=== PATIENT | male | born 1945 | race Caucasian/White ===

== ENCOUNTER 2019-05-16 13:16 | Inpatient (IN) ==
[2019-05-16 13:52] LABS: Basophils # 0.1 K/mcL (0.0-0.2); Basophils % 0.6 %; Eosinophils # 0.2 K/mcL (0.0-0.6); Eosinophils % 1.7 %; Hematocrit 40.5 % (37.5-50.1); Hemoglobin 13.1 g/dL (12.9-16.9); Immature Granulocytes % 0.4 % (0-4); Lymphocytes # 5.9 K/mcL (0.6-4.6); Lymphocytes % 43.4 %; Mean Corpuscular HGB Conc 32.3 g/dL (31.6-35.5); Mean Corpuscular Hemoglobin 27.9 pg (28.0-33.3); Mean Corpuscular Volume 86.4 fL (83.0-100.0); Mean Platelet Volume 10.1 fL (9.4-12.4); Neutrophils # 6.3 K/mcL (1.6-8.9); Platelet Count 221 K/mcL (140-400); Red Blood Count 4.69 M/mcL (4.19-5.50); Red Cell Distribution Width 15.9 % (11.5-14.5); Segmented Neutrophils % 46.9 %; White Blood Count 13.5 K/mcL (4.3-11.1)
[2019-05-16 14:10] LABS: Albumin 3.6 g/dL (3.5-5.7); Albumin/Globulin Ratio 1.2 (1.1-2.2); Bilirubin,Direct 0.1 mg/dL (0.0-0.2); Bilirubin,Indirect 0.4 mg/dL (0.0-1.2); Bilirubin,Total 0.5 mg/dL (0.3-1.0); Calcium 8.8 mg/dL (8.6-10.3); Globulin 2.9 g/dL (2.4-3.5); Potassium 3.7 mEq/L (3.5-5.1); Total Protein 6.5 g/dL (6.4-8.9)
[2019-05-16] MEDS ORDERED: Ertapenem 1,000 MG in 0.9 % Sodium Chloride Mini Bag 100 ML IVPB SCH (15:00)
[2019-05-16] MEDS ORDERED: Naloxone 0.4 MG/ML INJ IVP PRN (15:48)
[2019-05-16] MEDS ORDERED: Ondansetron 4 MG/2 ML VIAL IVP PRN (16:00)
[2019-05-16] MEDS ORDERED: Dextrose Gel 15 GM/37.5 ML TUBE PO PRN ×2 (16:03)
[2019-05-16] MEDS ORDERED: D5% in Water 1,000 ML IVC PRN (16:03)
[2019-05-16] MEDS: 0.9 % Sodium Chloride 1,000 ML IVC SCH (18:15)
[2019-05-16] MEDS: Insulin LISPRO 300 UNITS/3 ML VIAL SQ SCH (18:20)
[2019-05-16] MEDS ORDERED: levETIRAcetam 250 MG TABLET PO SCH (21:00)
[2019-05-16] MEDS: Gabapentin 300 MG CAPSULE PO SCH (21:36)
[2019-05-16] MEDS: levETIRAcetam 250 MG TABLET PO SCH (21:36)
[2019-05-16] MEDS: Insulin DETEMIR 100 UNIT/ML X5UNITS SQ SCH (21:36)
[2019-05-16] MEDS: Lactobacillus 1 EACH CAP.SPRINK PO SCH (21:36)
[2019-05-16] MEDS: Methocarbamol 500 MG TABLET PO SCH (21:36)
[2019-05-16 22:28] LABS: Bacteria,Urine None Seen per hpf (None-Few); Bilirubin,Urine Negative (Negative); Blood,Urine Negative (Negative); Clarity,Urine Clear (Clear); Color,Urine Yellow (Yellow); Glucose,Urine (UA) Normal (Normal); Hyaline Casts,Urine None Seen per lpf (None-Few); Ketones,Urine Negative (Negative); Leukocyte Esterase,Urine Negative (Negative); Nitrite,Urine Negative (Negative); Protein,Urine 100 mg/dL (Neg-Trace); RBC,Urine 0-3 per hpf (0-3); Specific Gravity,Urine 1.018 (1.010-1.025); Squamous Epithelial Cell,Urine Many per lpf (None-Few); Urobilinogen,Urine Normal (Normal); WBC,Urine 0-3 per hpf (0-3)
[2019-05-17] MEDS: *HR* Dextrose 50 % in Water (Syg) 50 ML SYRINGE IVP PRN ×2 (00:07→06:02)
[2019-05-17] MEDS: Insulin LISPRO 300 UNITS/3 ML VIAL SQ SCH ×4 (00:07→18:08)
[2019-05-17] MEDS ORDERED: *HR* Metoprolol 5 MG/5 ML VIAL IVP ONE (00:41)
[2019-05-17 03:47] LABS: Basophils # 0.1 K/mcL (0.0-0.2); Basophils % 0.4 %; Eosinophils # 0.1 K/mcL (0.0-0.6); Eosinophils % 0.6 %; Hemoglobin 13.8 g/dL (12.9-16.9); Immature Granulocytes % 0.3 % (0-4); Lymphocytes # 5.5 K/mcL (0.6-4.6); Lymphocytes % 35.6 %; Mean Corpuscular HGB Conc 32.1 g/dL (31.6-35.5); Mean Corpuscular Hemoglobin 27.6 pg (28.0-33.3); Mean Platelet Volume 10.1 fL (9.4-12.4); Monocytes # 1.2 K/mcL (0.0-1.3); Monocytes % 7.6 %; Neutrophils # 8.5 K/mcL (1.6-8.9); Platelet Count 219 K/mcL (140-400); Red Cell Distribution Width 15.8 % (11.5-14.5); Segmented Neutrophils % 55.5 %; White Blood Count 15.4 K/mcL (4.3-11.1)
[2019-05-17 03:54] LABS: Prothrombin Time 11.1 Seconds (9.4-12.1)
[2019-05-17 03:56] LABS: Activated Partial Thrombo Time 36.8 Seconds (26.0-36.0)
[2019-05-17 04:07] LABS: Albumin 3.4 g/dL (3.5-5.7); Albumin/Globulin Ratio 1.1 (1.1-2.2); Bilirubin,Total 0.5 mg/dL (0.3-1.0); Calcium 8.7 mg/dL (8.6-10.3); Potassium 3.4 mEq/L (3.5-5.1); Total Protein 6.4 g/dL (6.4-8.9)
[2019-05-17] MEDS ORDERED: Piperacillin/Tazobactam 3.375 GM in 0.9 % Sodium Chloride Mini Bag 100 ML IVPB SCH ×2 (06:00→15:00)
[2019-05-17] MEDS: 0.9 % Sodium Chloride 1,000 ML IVC SCH (06:02)
[2019-05-17] MEDS ORDERED: Levothyroxine 25 MCG TABLET PO SCH (06:30)
[2019-05-17] MEDS: Insulin DETEMIR 100 UNIT/ML X5UNITS SQ SCH ×2 (07:42→22:26)
[2019-05-17] MEDS ORDERED: Ringers Solution, Lactated 1,000 ML IVC SCH (07:45)
[2019-05-17] MEDS: levETIRAcetam 250 MG TABLET PO SCH (07:58)
[2019-05-17] MEDS: Gabapentin 300 MG CAPSULE PO SCH ×2 (07:58→22:26)
[2019-05-17] MEDS: Lactobacillus 1 EACH CAP.SPRINK PO SCH ×2 (07:58→22:25)
[2019-05-17] MEDS: Methocarbamol 500 MG TABLET PO SCH ×3 (07:58→22:26)
[2019-05-17] MEDS ORDERED: Magnesium Oxide 400 MG TABLET PO SCH (09:00)
[2019-05-17] MEDS ORDERED: Isosorbide MONOnitrate (24 HR) 30 MG TAB.ER.24H PO SCH (09:00)
[2019-05-17] MEDS ORDERED: Finasteride 5 MG TABLET PO SCH (09:00)
[2019-05-17] MEDS ORDERED: Aspirin Enteric Coated 81 MG Tablet PO SCH (09:00)
[2019-05-17] MEDS ORDERED: D5% in Lactated Ringers 1,000 ML IVC SCH ×2 (09:15→22:24)
[2019-05-17] MEDS ORDERED: Lidocaine -MPF 2% 2 ML VIAL ONE (16:15)
[2019-05-17] MEDS ORDERED: *HR* Midazolam HCl 2 MG/2 ML VIAL ONE (16:15)
[2019-05-17] MEDS ORDERED: Dexamethasone 4 MG/ML VIAL ONE (16:15)
[2019-05-17] MEDS ORDERED: *HR* Rocuronium Bromide 50 MG/5 ML VIAL ONE (16:15)
[2019-05-17] MEDS ORDERED: Neostigmine Methylsulfate 3 MG/3 ML SYRINGE ONE ×2 (16:15→20:11)
[2019-05-17] MEDS ORDERED: *HR* FentaNYL (PF) 100 MCG/2 ML VIAL ONE ×2 (16:15→20:19)
[2019-05-17] MEDS ORDERED: Ondansetron 4 MG/2 ML VIAL ONE ×2 (16:15→20:21)
[2019-05-17] MEDS ORDERED: *HR* Succinylcholine 200 MG/10 ML VIAL IVP ONE (16:15)
[2019-05-17] MEDS ORDERED: *HR* Propofol 200 MG/20 ML VIAL IVP ONE (16:16)
[2019-05-17] MEDS ORDERED: Isovue-300 50ML VIAL ONE (16:28)
[2019-05-17] MEDS ORDERED: Bupivacaine/EPI 1:200k 0.5%PF 30 ML VIAL ONE (16:50)
[2019-05-17] MEDS ORDERED: Acetaminophen IV 1,000 MG/100 ML INFUS..BTL ONE (16:57)
[2019-05-17] MEDS ORDERED: Bupivacaine/EPI 1:200k 0.5%PF 10 ML VIAL ONE (20:29)
[2019-05-17] MEDS ORDERED: levETIRAcetam 250 MG TABLET PO SCH (21:00)
[2019-05-17] MEDS ORDERED: *HR* Dextrose 50 % in Water (Syg) 50 ML SYRINGE IVP PRN (22:24)
[2019-05-17] MEDS ORDERED: D5% in Water 1,000 ML IVC PRN (22:24)
[2019-05-17] MEDS ORDERED: Dextrose Gel 15 GM/37.5 ML TUBE PO PRN ×2 (22:24)
[2019-05-17] MEDS ORDERED: Naloxone 0.4 MG/ML INJ IVP PRN (22:24)
[2019-05-17] MEDS ORDERED: Ondansetron 4 MG/2 ML VIAL IVP PRN (22:58)
[2019-05-18] MEDS: D5% in 0.45% NACL 1,000 ML IVC SCH ×4 (00:04→20:15)
[2019-05-18] MEDS: Piperacillin/Tazobactam 3.375 GM in 0.9 % Sodium Chloride Mini Bag 100 ML IVPB SCH ×3 (00:04→15:50)
[2019-05-18] MEDS: Insulin LISPRO 300 UNITS/3 ML VIAL SQ SCH ×5 (00:13→21:34)
[2019-05-18 05:22] LABS: Basophils % 0.2 %; Hematocrit 37.3 % (37.5-50.1); Mean Corpuscular HGB Conc 30.8 g/dL (31.6-35.5)
[2019-05-18 05:23] LABS: Basophils # 0.1 K/mcL (0.0-0.2); Hemoglobin 11.5 g/dL (12.9-16.9); Immature Granulocytes % 0.7 % (0-4); Lymphocytes # 5.7 K/mcL (0.6-4.6); Lymphocytes % 16.4 %; Mean Corpuscular Hemoglobin 27.8 pg (28.0-33.3); Mean Corpuscular Volume 90.3 fL (83.0-100.0); Monocytes # 1.9 K/mcL (0.0-1.3); Monocytes % 5.4 %; Neutrophils # 26.9 K/mcL (1.6-8.9); Platelet Count 270 K/mcL (140-400); Red Blood Count 4.13 M/mcL (4.19-5.50); Red Cell Distribution Width 16.5 % (11.5-14.5); Segmented Neutrophils % 77.3 %
[2019-05-18 05:36] LABS: White Blood Count 34.8 K/mcL (4.3-11.1)
[2019-05-18 05:45] LABS: Albumin/Globulin Ratio 1.3 (1.1-2.2); Bilirubin,Total 0.6 mg/dL (0.3-1.0); Calcium 8.3 mg/dL (8.6-10.3); Globulin 2.4 g/dL (2.4-3.5); Potassium 5.1 mEq/L (3.5-5.1); Total Protein 5.4 g/dL (6.4-8.9)
[2019-05-18 05:53] LABS: Platelet Estimate Normal (Normal)
[2019-05-18 05:54] LABS: Reactive Lymphocytes Present (Not Present); Smudge Cells Present (Not Present)
[2019-05-18] MEDS: Levothyroxine 25 MCG TABLET PO SCH (06:34)
[2019-05-18] MEDS: Finasteride 5 MG TABLET PO SCH (08:25)
[2019-05-18] MEDS: Gabapentin 300 MG CAPSULE PO SCH ×2 (08:26→20:11)
[2019-05-18] MEDS: Lactobacillus 1 EACH CAP.SPRINK PO SCH ×2 (08:26→20:12)
[2019-05-18] MEDS: levETIRAcetam 250 MG TABLET PO SCH ×2 (08:26→20:11)
[2019-05-18] MEDS: Magnesium Oxide 400 MG TABLET PO SCH (08:27)
[2019-05-18] MEDS: Isosorbide MONOnitrate (24 HR) 30 MG TAB.ER.24H PO SCH (08:28)
[2019-05-18] MEDS: Insulin DETEMIR 100 UNIT/ML X5UNITS SQ SCH ×2 (08:32→21:35)
[2019-05-18] MEDS ORDERED: Methocarbamol 500 MG TABLET PO SCH (09:00)
[2019-05-18] MEDS ORDERED: levETIRAcetam 250 MG TABLET PO SCH (09:00)
[2019-05-18 13:19] LABS: Basophils # 0.1 K/mcL (0.0-0.2); Basophils % 0.2 %; Hematocrit 33.3 % (37.5-50.1); Hemoglobin 10.4 g/dL (12.9-16.9); Immature Granulocytes % 0.6 % (0-4); Lymphocytes # 6.3 K/mcL (0.6-4.6); Lymphocytes % 23.2 %; Mean Corpuscular HGB Conc 31.2 g/dL (31.6-35.5); Mean Corpuscular Hemoglobin 28.4 pg (28.0-33.3); Mean Platelet Volume 10.8 fL (9.4-12.4); Monocytes % 11.1 %; Neutrophils # 17.7 K/mcL (1.6-8.9); Platelet Count 240 K/mcL (140-400); Red Blood Count 3.66 M/mcL (4.19-5.50); Red Cell Distribution Width 16.6 % (11.5-14.5); Segmented Neutrophils % 64.9 %; White Blood Count 27.2 K/mcL (4.3-11.1)
[2019-05-18 13:30] LABS: Platelet Estimate Normal (Normal)
[2019-05-18 13:31] LABS: Smudge Cells Present (Not Present)
[2019-05-18] MEDS: Methocarbamol 500 MG TABLET PO SCH ×2 (15:07→20:11)
[2019-05-19] MEDS: Piperacillin/Tazobactam 3.375 GM in 0.9 % Sodium Chloride Mini Bag 100 ML IVPB SCH ×3 (00:03→18:00)
[2019-05-19] MEDS: D5% in 0.45% NACL 1,000 ML IVC SCH ×2 (04:20→15:19)
[2019-05-19] MEDS: Levothyroxine 25 MCG TABLET PO SCH (05:14)
[2019-05-19 07:34] LABS: Hematocrit 27.6 % (37.5-50.1); Mean Corpuscular HGB Conc 30.8 g/dL (31.6-35.5); Mean Corpuscular Hemoglobin 28.7 pg (28.0-33.3); Mean Corpuscular Volume 93.2 fL (83.0-100.0); Platelet Count 188 K/mcL (140-400); Red Blood Count 2.96 M/mcL (4.19-5.50); Red Cell Distribution Width 16.9 % (11.5-14.5); White Blood Count 21.2 K/mcL (4.3-11.1)
[2019-05-19] MEDS ORDERED: Lidocaine -MPF 2% 2 ML VIAL ONE (07:36)
[2019-05-19] MEDS ORDERED: *HR* Succinylcholine 200 MG/10 ML VIAL IVP ONE (07:36)
[2019-05-19] MEDS ORDERED: Ondansetron 4 MG/2 ML VIAL ONE (07:36)
[2019-05-19] MEDS ORDERED: Lidocaine HCL 4 ML Topical Solution (Laryng-O-Jet Kit Sterile Pak) TP ONE (07:36)
[2019-05-19] MEDS ORDERED: Dexamethasone 4 MG/ML VIAL ONE (07:36)
[2019-05-19 07:46] LABS: Hemoglobin 8.5 g/dL (12.9-16.9)
[2019-05-19 07:52] LABS: Calcium 7.7 mg/dL (8.6-10.3); Potassium 4.4 mEq/L (3.5-5.1)
[2019-05-19 07:54] LABS: Albumin 2.7 g/dL (3.5-5.7); Albumin/Globulin Ratio 1.2 (1.1-2.2); Bilirubin,Direct 0.1 mg/dL (0.0-0.2); Bilirubin,Indirect 0.3 mg/dL (0.0-1.2); Bilirubin,Total 0.4 mg/dL (0.3-1.0); Globulin 2.3 g/dL (2.4-3.5)
[2019-05-19] MEDS: levETIRAcetam 250 MG TABLET PO SCH ×2 (08:28→20:29)
[2019-05-19] MEDS: Lactobacillus 1 EACH CAP.SPRINK PO SCH ×2 (08:28→20:28)
[2019-05-19] MEDS: Magnesium Oxide 400 MG TABLET PO SCH (08:28)
[2019-05-19] MEDS: Finasteride 5 MG TABLET PO SCH (08:29)
[2019-05-19] MEDS: Isosorbide MONOnitrate (24 HR) 30 MG TAB.ER.24H PO SCH (08:29)
[2019-05-19] MEDS: Gabapentin 300 MG CAPSULE PO SCH (08:29)
[2019-05-19] MEDS: Methocarbamol 500 MG TABLET PO SCH ×3 (08:29→20:29)
[2019-05-19] MEDS: Insulin LISPRO 300 UNITS/3 ML VIAL SQ SCH ×4 (08:30→20:20)
[2019-05-19] MEDS: Insulin DETEMIR 100 UNIT/ML X5UNITS SQ SCH ×2 (08:41→20:29)
[2019-05-19 10:31] LABS: Sodium, Urine 25.6 mEq/L
[2019-05-19 10:32] LABS: Bilirubin,Urine Small (Negative); Blood,Urine Negative (Negative); Clarity,Urine Cloudy (Clear); Color,Urine Yellow (Yellow); Glucose,Urine (UA) 100 mg/dL (Normal); Ketones,Urine Negative (Negative); Leukocyte Esterase,Urine Negative (Negative); Nitrite,Urine Negative (Negative); Protein,Urine 30 mg/dL (Neg-Trace); Specific Gravity,Urine 1.025 (1.010-1.025); Urobilinogen,Urine Normal (Normal)
[2019-05-19 10:35] LABS: Bacteria,Urine None Seen per hpf (None-Few); Hyaline Casts,Urine None Seen per lpf (None-Few); RBC,Urine 0-3 per hpf (0-3); Squamous Epithelial Cell,Urine Many per lpf (None-Few)
[2019-05-19] MEDS ORDERED: 0.9 % Sodium Chloride 500 ML IVC ONE (10:52)
[2019-05-19 11:33] LABS: Hematocrit 28.2 % (37.5-50.1); Hemoglobin 8.6 g/dL (12.9-16.9); Mean Corpuscular HGB Conc 30.5 g/dL (31.6-35.5); Mean Corpuscular Hemoglobin 28.6 pg (28.0-33.3); Mean Corpuscular Volume 93.7 fL (83.0-100.0); Mean Platelet Volume 10.9 fL (9.4-12.4); Platelet Count 181 K/mcL (140-400); Red Blood Count 3.01 M/mcL (4.19-5.50); Red Cell Distribution Width 16.9 % (11.5-14.5); White Blood Count 22.1 K/mcL (4.3-11.1)
[2019-05-19 11:55] LABS: % Iron Saturation 6 % (20-55); Iron 11 mcg/dL (65-175); Transferrin 121 mg/dL (203-362)
[2019-05-19 12:14] LABS: Ferritin 150 ng/mL (20-250)
[2019-05-19 12:20] LABS: Folate 8.2 ng/mL (3.0-16.0)
[2019-05-19] MEDS: 0.9 % Sodium Chloride 1,000 ML IVC SCH (15:36)
[2019-05-20 02:18] LABS: Basophils % 0.2 %; Eosinophils # 0.1 K/mcL (0.0-0.6); Eosinophils % 0.8 %; Hematocrit 25.9 % (37.5-50.1); Immature Granulocytes % 0.5 % (0-4); Lymphocytes # 5.3 K/mcL (0.6-4.6); Lymphocytes % 29.9 %; Mean Corpuscular HGB Conc 30.9 g/dL (31.6-35.5); Mean Corpuscular Hemoglobin 28.5 pg (28.0-33.3); Mean Corpuscular Volume 92.2 fL (83.0-100.0); Monocytes # 1.5 K/mcL (0.0-1.3); Monocytes % 8.5 %; Neutrophils # 10.7 K/mcL (1.6-8.9); Platelet Count 164 K/mcL (140-400); Red Blood Count 2.81 M/mcL (4.19-5.50); Red Cell Distribution Width 16.8 % (11.5-14.5); Segmented Neutrophils % 60.1 %; White Blood Count 17.8 K/mcL (4.3-11.1)
[2019-05-20 02:19] LABS: Hematocrit 26.1 % (37.5-50.1); Hemoglobin 8.1 g/dL (12.9-16.9); Mean Corpuscular Hemoglobin 28.6 pg (28.0-33.3); Mean Corpuscular Volume 92.2 fL (83.0-100.0); Platelet Count 165 K/mcL (140-400); Red Blood Count 2.83 M/mcL (4.19-5.50); Red Cell Distribution Width 16.5 % (11.5-14.5); White Blood Count 17.8 K/mcL (4.3-11.1)
[2019-05-20 02:32] LABS: Calcium 7.6 mg/dL (8.6-10.3); Magnesium 1.9 mg/dL (1.6-2.6); Phosphorous 4.1 mg/dL (2.7-4.5); Potassium 4.3 mEq/L (3.5-5.1)
[2019-05-20] MEDS: Piperacillin/Tazobactam 3.375 GM in 0.9 % Sodium Chloride Mini Bag 100 ML IVPB SCH ×2 (06:13→17:31)
[2019-05-20] MEDS: Levothyroxine 25 MCG TABLET PO SCH (06:13)
[2019-05-20] MEDS: D5% in 0.45% NACL 1,000 ML IVC SCH ×2 (07:29→13:06)
[2019-05-20] MEDS: Magnesium Oxide 400 MG TABLET PO SCH (09:44)
[2019-05-20] MEDS: Methocarbamol 500 MG TABLET PO SCH ×3 (09:44→21:09)
[2019-05-20] MEDS: Lactobacillus 1 EACH CAP.SPRINK PO SCH ×2 (09:44→21:10)
[2019-05-20] MEDS: Finasteride 5 MG TABLET PO SCH (09:44)
[2019-05-20] MEDS: Isosorbide MONOnitrate (24 HR) 30 MG TAB.ER.24H PO SCH (09:44)
[2019-05-20] MEDS: 0.9 % Sodium Chloride 1,000 ML IVC SCH (09:45)
[2019-05-20] MEDS: levETIRAcetam 250 MG TABLET PO SCH ×2 (09:45→21:10)
[2019-05-20] MEDS: Insulin LISPRO 300 UNITS/3 ML VIAL SQ SCH ×4 (09:46→21:10)
[2019-05-20] MEDS: Insulin DETEMIR 100 UNIT/ML X5UNITS SQ SCH ×2 (10:05→21:10)
[2019-05-21] MEDS ORDERED: Insulin LISPRO 300 UNITS/3 ML VIAL SQ SCH (00:01)
[2019-05-21] MEDS: D5% in 0.45% NACL 1,000 ML IVC SCH (03:58)
[2019-05-21 04:30] LABS: Hematocrit 25.5 % (37.5-50.1); Hemoglobin 7.9 g/dL (12.9-16.9); Mean Corpuscular Hemoglobin 28.8 pg (28.0-33.3); Mean Corpuscular Volume 93.1 fL (83.0-100.0); Platelet Count 160 K/mcL (140-400); Red Blood Count 2.74 M/mcL (4.19-5.50); Red Cell Distribution Width 16.7 % (11.5-14.5); White Blood Count 12.7 K/mcL (4.3-11.1)
[2019-05-21 04:52] LABS: Albumin 2.6 g/dL (3.5-5.7); Bilirubin,Total 0.6 mg/dL (0.3-1.0); Globulin 2.5 g/dL (2.4-3.5); Phosphorous 3.3 mg/dL (2.7-4.5); Potassium 4.3 mEq/L (3.5-5.1); Total Protein 5.1 g/dL (6.4-8.9)
[2019-05-21] MEDS: Piperacillin/Tazobactam 3.375 GM in 0.9 % Sodium Chloride Mini Bag 100 ML IVPB SCH ×2 (06:45→18:06)
[2019-05-21] MEDS: Levothyroxine 25 MCG TABLET PO SCH (06:46)
[2019-05-21] MEDS: Insulin LISPRO 300 UNITS/3 ML VIAL SQ SCH ×4 (08:21→20:41)
[2019-05-21] MEDS: 0.9 % Sodium Chloride 1,000 ML IVC SCH ×2 (08:22→12:05)
[2019-05-21] MEDS: levETIRAcetam 250 MG TABLET PO SCH ×2 (09:05→20:37)
[2019-05-21] MEDS: Finasteride 5 MG TABLET PO SCH (09:05)
[2019-05-21] MEDS: Methocarbamol 500 MG TABLET PO SCH ×3 (09:05→20:37)
[2019-05-21] MEDS: Lactobacillus 1 EACH CAP.SPRINK PO SCH ×2 (09:05→20:37)
[2019-05-21] MEDS: Magnesium Oxide 400 MG TABLET PO SCH (09:05)
[2019-05-21] MEDS: Isosorbide MONOnitrate (24 HR) 30 MG TAB.ER.24H PO SCH (09:06)
[2019-05-21] MEDS: Insulin DETEMIR 100 UNIT/ML X5UNITS SQ SCH ×2 (09:10→20:42)
[2019-05-21] MEDS ORDERED: *HR* Propofol 200 MG/20 ML VIAL IVP ONE (12:47)
[2019-05-21] MEDS ORDERED: *HR* Succinylcholine 200 MG/10 ML VIAL IVP ONE (12:47)
[2019-05-21] MEDS ORDERED: Lidocaine -MPF 4% 5 ML AMPUL ONE (12:47)
[2019-05-21] MEDS ORDERED: Lidocaine -MPF 2% 2 ML VIAL ONE (12:47)
[2019-05-21] MEDS ORDERED: *HR* Rocuronium Bromide 50 MG/5 ML VIAL ONE (12:47)
[2019-05-21] MEDS ORDERED: Dexamethasone 4 MG/ML VIAL ONE (12:47)
[2019-05-21] MEDS ORDERED: Ondansetron 4 MG/2 ML VIAL ONE (12:47)
[2019-05-21] MEDS ORDERED: *HR* FentaNYL (PF) 100 MCG/2 ML VIAL ONE (12:58)
[2019-05-21] MEDS ORDERED: *HR* Promethazine 25 MG/ML VIAL IVP PRN (14:02)
[2019-05-21] MEDS ORDERED: *HR* OxyCODONE Immed Rel 5 MG TABLET PO PRN (14:02)
[2019-05-21] MEDS ORDERED: *HR* Labetalol 20 MG/4 ML SYRINGE IVP PRN (14:02)
[2019-05-21] MEDS ORDERED: Albuterol 2.5 MG/3 ML NEBULIZER IH ONE (14:02)
[2019-05-21] MEDS ORDERED: Ondansetron 4 MG/2 ML VIAL IVP ONE (14:02)
[2019-05-21] MEDS ORDERED: *HR* FentaNYL (PF) 100 MCG/2 ML VIAL IVP PRN (14:02)
[2019-05-21] MEDS ORDERED: Indomethacin 50 MG SUPP.RECT RC ONE (14:40)
[2019-05-21 18:26] LABS: Hematocrit 28.8 % (37.5-50.1)
[2019-05-22] MEDS: 0.9 % Sodium Chloride 1,000 ML IVC SCH (03:00)
[2019-05-22 04:56] LABS: Basophils % 0.1 %; Hematocrit 29.2 % (37.5-50.1); Hemoglobin 8.9 g/dL (12.9-16.9); Immature Granulocytes % 0.8 % (0-4); Lymphocytes # 3.6 K/mcL (0.6-4.6); Lymphocytes % 27.1 %; Mean Corpuscular HGB Conc 30.5 g/dL (31.6-35.5); Mean Corpuscular Hemoglobin 28.7 pg (28.0-33.3); Mean Corpuscular Volume 94.2 fL (83.0-100.0); Mean Platelet Volume 10.9 fL (9.4-12.4); Monocytes # 0.5 K/mcL (0.0-1.3); Monocytes % 3.8 %; Neutrophils # 8.9 K/mcL (1.6-8.9); Platelet Count 207 K/mcL (140-400); Red Cell Distribution Width 16.4 % (11.5-14.5); Segmented Neutrophils % 68.2 %; White Blood Count 13.1 K/mcL (4.3-11.1)
[2019-05-22 05:19] LABS: Magnesium 2.4 mg/dL (1.6-2.6); Phosphorous 5.4 mg/dL (2.7-4.5)
[2019-05-22] MEDS: Piperacillin/Tazobactam 3.375 GM in 0.9 % Sodium Chloride Mini Bag 100 ML IVPB SCH ×3 (05:32→21:26)
[2019-05-22] MEDS: Levothyroxine 25 MCG TABLET PO SCH (05:32)
[2019-05-22 05:40] LABS: Albumin 2.7 g/dL (3.5-5.7); Bilirubin,Total 0.5 mg/dL (0.3-1.0); Globulin 2.7 g/dL (2.4-3.5); Potassium 5.5 mEq/L (3.5-5.1); Total Protein 5.4 g/dL (6.4-8.9)
[2019-05-22] MEDS ORDERED: Albuterol 2.5 MG/3 ML NEBULIZER IH ONE (05:43)
[2019-05-22] MEDS: Insulin LISPRO 300 UNITS/3 ML VIAL SQ SCH ×4 (08:40→22:39)
[2019-05-22] MEDS: Methocarbamol 500 MG TABLET PO SCH ×3 (08:42→21:25)
[2019-05-22] MEDS: Magnesium Oxide 400 MG TABLET PO SCH (08:43)
[2019-05-22] MEDS: levETIRAcetam 250 MG TABLET PO SCH ×2 (08:44→21:26)
[2019-05-22] MEDS: Finasteride 5 MG TABLET PO SCH (08:44)
[2019-05-22] MEDS: Isosorbide MONOnitrate (24 HR) 30 MG TAB.ER.24H PO SCH (08:44)
[2019-05-22] MEDS: Insulin DETEMIR 100 UNIT/ML X5UNITS SQ SCH ×2 (08:45→21:25)
[2019-05-22] MEDS: Lactobacillus 1 EACH CAP.SPRINK PO SCH ×2 (08:45→21:25)
[2019-05-22] MEDS ORDERED: Ibuprofen 800 MG TABLET PO PRN (09:16)
[2019-05-22] MEDS ORDERED: *HR* OxyCODONE/APAP 7.5/325 TABLET PO PRN (09:16)
[2019-05-22] MEDS ORDERED: *HR* OxyCODONE Immed Rel 5 MG TABLET PO PRN ×2 (10:06)
[2019-05-22] MEDS ORDERED: Sodium Bicarbonate 75 MEQ in 0.45 % Sodium Chloride 1,000 ML IVC SCH (20:45)
[2019-05-23 05:06] LABS: Basophils % 0.1 %; Eosinophils # 0.1 K/mcL (0.0-0.6); Eosinophils % 0.4 %; Hematocrit 24.4 % (37.5-50.1); Hemoglobin 7.6 g/dL (12.9-16.9); Immature Granulocytes % 0.6 % (0-4); Lymphocytes # 4.8 K/mcL (0.6-4.6); Lymphocytes % 34.4 %; Mean Corpuscular HGB Conc 31.1 g/dL (31.6-35.5); Mean Corpuscular Hemoglobin 28.5 pg (28.0-33.3); Mean Corpuscular Volume 91.4 fL (83.0-100.0); Mean Platelet Volume 10.8 fL (9.4-12.4); Monocytes # 0.9 K/mcL (0.0-1.3); Monocytes % 6.5 %; Neutrophils # 8.2 K/mcL (1.6-8.9); Platelet Count 213 K/mcL (140-400); Red Blood Count 2.67 M/mcL (4.19-5.50); Red Cell Distribution Width 16.5 % (11.5-14.5); White Blood Count 14.1 K/mcL (4.3-11.1)
[2019-05-23 05:27] LABS: Albumin 2.5 g/dL (3.5-5.7); Albumin/Globulin Ratio 1.1 (1.1-2.2); Bilirubin,Total 0.5 mg/dL (0.3-1.0); Globulin 2.3 g/dL (2.4-3.5); Magnesium 2.3 mg/dL (1.6-2.6); Phosphorous 3.1 mg/dL (2.7-4.5); Potassium 4.5 mEq/L (3.5-5.1); Total Protein 4.8 g/dL (6.4-8.9)
[2019-05-23] MEDS: Levothyroxine 25 MCG TABLET PO SCH (05:32)
[2019-05-23] MEDS: Piperacillin/Tazobactam 3.375 GM in 0.9 % Sodium Chloride Mini Bag 100 ML IVPB SCH (05:32)
[2019-05-23] MEDS: Insulin LISPRO 300 UNITS/3 ML VIAL SQ SCH ×2 (07:17→12:07)
[2019-05-23] MEDS: Isosorbide MONOnitrate (24 HR) 30 MG TAB.ER.24H PO SCH (08:53)
[2019-05-23] MEDS: Finasteride 5 MG TABLET PO SCH (08:53)
[2019-05-23] MEDS: Magnesium Oxide 400 MG TABLET PO SCH (08:53)
[2019-05-23] MEDS: Methocarbamol 500 MG TABLET PO SCH (08:53)
[2019-05-23] MEDS: Lactobacillus 1 EACH CAP.SPRINK PO SCH (08:53)
[2019-05-23] MEDS: Insulin DETEMIR 100 UNIT/ML X5UNITS SQ SCH (08:54)
[2019-05-23] MEDS: levETIRAcetam 250 MG TABLET PO SCH (08:54)
[2019-05-23 10:22] VITALS: BP 147/70
[2019-05-23 10:47] LABS: Basophils % 0.3 %; Eosinophils # 0.1 K/mcL (0.0-0.6); Eosinophils % 0.7 %; Hematocrit 26.8 % (37.5-50.1); Hemoglobin 8.5 g/dL (12.9-16.9); Immature Granulocytes % 0.6 % (0-4); Lymphocytes # 5.7 K/mcL (0.6-4.6); Lymphocytes % 37.2 %; Mean Corpuscular HGB Conc 31.7 g/dL (31.6-35.5); Mean Corpuscular Hemoglobin 28.5 pg (28.0-33.3); Mean Corpuscular Volume 89.9 fL (83.0-100.0); Mean Platelet Volume 10.5 fL (9.4-12.4); Monocytes # 1.1 K/mcL (0.0-1.3); Monocytes % 7.1 %; Neutrophils # 8.4 K/mcL (1.6-8.9); Platelet Count 205 K/mcL (140-400); Red Blood Count 2.98 M/mcL (4.19-5.50); Red Cell Distribution Width 16.7 % (11.5-14.5); Segmented Neutrophils % 54.1 %; White Blood Count 15.4 K/mcL (4.3-11.1)
== END 2019-05-23 16:12 | disposition home or self-care (01) | DRG 412 ==
LOC: 3ANU 13:16 → EMEROOARM 13:16 → SUATTDRO 16:17 → 3ANU 18:05 → SUATTDRO 05-17 14:25 → 2NNU 05-19 14:36 → 3ANU 05-22 14:00
PROVIDERS: ADMIT Internal Medicine; ATTEND Internal Medicine